=== PATIENT | female | born 1955 | race Caucasian/White ===

== ENCOUNTER 2019-07-12 15:13 | Emergency (ER) | payer MEDICAID, SELFPAY ==
[2019-07-12 15:40] VITALS: BP 95/58; PULSE 59; RESP 20; TEMP 36.8; O2SAT 95; BMI 17.2
== END 2019-07-12 18:28 | disposition left against medical advice (07) ==
PROVIDERS: Emergency Provider Family Medicine; Family Provider Family Medicine; PCP Family Medicine
DX: Z53.21 Procedure and treatment not carried out due to patient leaving prior to being seen by health care provider (principal)
CPT/HCPCS: 99281

== ENCOUNTER → 2019-07-30 09:20 | Outpatient (BNVA) | payer MEDICAID, SELFPAY | PROVIDERS: Family Provider Family Medicine; PCP Family Medicine; Visit Provider Family Medicine | DX: R91.1 Solitary pulmonary nodule (principal) | CPT/HCPCS: 80053; 81003; 82465; 83036; 85025; 85384; 85610; 85730 ==

== ENCOUNTER → 2020-05-08 09:31 | Outpatient (BNVA) | payer MEDICAID, SELFPAY | PROVIDERS: Family Provider Family Medicine; PCP Family Medicine; Visit Provider Nurse Practitioner Family | DX: Z20.828 Contact with and (suspected) exposure to other viral communicable diseases (principal); R05 Cough; R50.9 Fever, unspecified | CPT/HCPCS: 87635 ==